=== PATIENT | female | born 1985 | race Caucasian/White ===

== ENCOUNTER 2019-02-15 14:07 | Outpatient (CLI) | payer SELFPAY ==
[2013-09-12 12:52] VITALS: BP 137/81
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
== END 2019-02-15 14:17 ==
LOC: RAD 14:07
PROVIDERS: ATTEND Family Medicine
DX: S09.92XA Unspecified injury of nose, initial encounter (principal); X58.XXXA Exposure to other specified factors, initial encounter
CPT/HCPCS: 70486